=== PATIENT | female | born 2000 | race Caucasian/White ===

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

== ENCOUNTER 2022-05-01 10:48 | Emergency (ER) | payer OTHER, MEDICAID ==
[~2022-05-01] VITALS: Ht 167.7 cm; Wt 69.9 kg
[2022-05-01] MEDS ORDERED: hydrOXYzine (VISTARIL/ATARAX) 25 MG capsule/tablet PO ONE (11:45)
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
[2022-05-01] MEDS ORDERED: HYDR-3781 PO (13:22)
[2022-05-01 14:31] VITALS: BP 111/75
== END 2022-05-01 14:31 | disposition home or self-care (01) ==
LOC: EDUNIT# 10:48 → ER 10:50
DX: O99.342 Other mental disorders complicating pregnancy, second trimester (principal); F41.9 Anxiety disorder, unspecified; Z87.891 Personal history of nicotine dependence; Z3A.14 14 weeks gestation of pregnancy; Z28.311 Partially vaccinated for COVID-19
CPT/HCPCS: 99283

== ENCOUNTER → 2022-06-12 | Outpatient (CLI) | payer OTHER, MEDICAID ==
[~2022-06-12] MED LIST changes: +HYDR-3781 PO
--- NOTE | 2022-06-12 14:40 | Diagnostic Imaging Report ---
INDICATION: anatomy survey TECHNIQUE: Multiple real-time grayscale images were obtained over the gravid uterus. COMPARISON: None FINDINGS: Cervix is not well seen but measures approximately 4 cm in length. There is a single live intrauterine in the cephalic position. The placenta is posterior in location, and there is no evidence of previa or placental abruption. The amount of amniotic fluid appears visually appropriate. anatomy survey was performed and the following structures are visualized and normal: Four-chamber heart, stomach, urinary bladder, umbilical cord insertion, three-vessel cord, spine, right ventricular outflow tract, cerebral ventricles, cerebellum, cisterna magna, lips/nose, profile and left ventricular outflow tract. Dedicated imaging of the kidneys was not documented. Due to advanced gestational age, the maternal adnexa are suboptimally evaluated. Biometrical measurements are as follows: Biparietal 4.94 cm, age 21 weeks 0 days. Head circumference 18.05 cm, age 20 weeks 4 days. Abdominal circumference 15.95 cm, age 21 weeks 1 days. Femur length 3.21 cm, age 20 weeks 0 days. Sonographic estimate age: 20 weeks 5 days. Sonographic estimated date of delivery: 10/25/2022. Estimated Weight: 363 gm (+/- 54 gm). LMP percentile: 78%. heart rate: 150 beats per minute. number: 1 of 1. IMPRESSION: 1. Single live intrauterine has no anomaly of the visualized anatomy. 2. Kidneys are not seen on this exam. Consider followup ultrasound to document normal kidneys. Dictated by: Dictated on workstation # [id number]
== END ==
LOC: RAD 10:00
PROVIDERS: ATTEND Obstetrics & Gynecology
DX: Z34.92 Encounter for supervision of normal pregnancy, unspecified, second trimester (principal); Z3A.20 20 weeks gestation of pregnancy
CPT/HCPCS: 76805

== ENCOUNTER 2022-10-29 19:30 | Inpatient (IN) | payer OTHER, MEDICAID ==
[~2022-10-29] VITALS: Ht 165.1 cm; Wt 96.8 kg
[2022-10-29 20:55] VITALS: BP 133/81
[2022-10-29] MEDS ORDERED: AMPICILLIN FOR IV USE 2,000 MG in NS (IVPB) 50 ML IV SCH (21:12)
[2022-10-29] MEDS ORDERED: TERBUTALINE INJ 1 MG/ML (BRETHINE) AMP SC PRN (21:15)
[2022-10-29] MEDS ORDERED: NS IV 1000 ML 1,000 ML IV SCH (21:15)
[2022-10-29 21:50] LABS: BASOPHILS % (AUTO) 0 % (0-10); EOSINOPHILS % (AUTO) 0 % (0-10); HEMATOCRIT 30 % (35-52); HEMOGLOBIN 9.5 g/dL (11.5-16.0); LYMPHOCYTES # (AUTO) 2.3 10^3/uL (1.0-4.0); LYMPHOCYTES % (AUTO) 24 % (12-44); MEAN CORPUSCULAR HEMOGLOBIN 25 pg (25-34); MEAN CORPUSCULAR HGB CONC 32 g/dL (32-36); MEAN CORPUSCULAR VOLUME 78 fL (80-99); MEAN PLATELET VOLUME 11.5 fL (9.0-12.2); MONOCYTES % (AUTO) 11 % (0-12); NEUTROPHILS # (AUTO) 6.1 10^3/uL (1.8-7.8); NEUTROPHILS % (AUTO) 64 % (42-75); PLATELET COUNT 246 10^3/uL (130-400); WHITE BLOOD COUNT 9.5 10^3/uL (4.3-11.0)
[2022-10-29] MEDS: D5 LR IV SOLUTION 1,000 ML IV SCH (21:51)
[2022-10-29] MEDS: CATHETER FLUSH 10 ML SYR IV SCH (22:00)
[2022-10-29 22:04] LABS: BILIRUBIN,URINE NEGATIVE (NEGATIVE); CLARITY,URINE CLEAR; COLOR,URINE YELLOW; GLUCOSE, URINE (UA) NEGATIVE (NEGATIVE); KETONES,URINE TRACE (NEGATIVE); LEUKOCYTE ESTERASE ,URINE NEGATIVE (NEGATIVE); NITRITE,URINE NEGATIVE (NEGATIVE); PROTEIN,URINE TRACE (NEGATIVE)
[2022-10-29 22:13] LABS: BACTERIA,URINE NEGATIVE /HPF
[2022-10-30] VITALS (78 sets, daily range): BP systolic 90–165; BP diastolic 44–87
[2022-10-30] MEDS: AMPICILLIN FOR IV USE 1,000 MG in NS (IVPB) 50 ML IV SCH ×5 (01:56→18:19)
[2022-10-30] MEDS: D5 LR IV SOLUTION 1,000 ML IV SCH ×2 (06:07→15:22)
[2022-10-30] MEDS: CATHETER FLUSH 10 ML SYR IV SCH (06:07)
[2022-10-30] MEDS ORDERED: CALCIUM CARBONATE 500 MG (TUMS) TAB.CHEW ONE (06:20)
[2022-10-30] MEDS: CALCIUM CARBONATE 500 MG (TUMS) TAB.CHEW PO PRN (06:21)
[2022-10-30] MEDS ORDERED: OXYTOCIN PRE-MIX DRIP 500 ML IV SCH (08:00)
[2022-10-30] MEDS ORDERED: fentaNYL 2 mcg/ml BUPIVA 0.125 100 ML ONE (08:16)
[2022-10-30] MEDS ORDERED: fentaNYL INJ 100 MCG/2 ML AMP ONE (09:13)
[2022-10-30] MEDS ORDERED: diphenhydrAMINE 50 MG/ML INJ (BENADRYL) IV PRN (10:00)
[2022-10-30] MEDS ORDERED: NALOXONE 0.4 MG/ML 1 ML (NARCAN) VIAL IV PRN ×3 (10:00→19:45)
[2022-10-30] MEDS ORDERED: METOCLOPRAMIDE INJ 10 MG/2 ML (REGLAN) IV PRN (10:00)
[2022-10-30] MEDS ORDERED: ONDANSETRON 4 MG/2 ML (SDV) Z0FRAN IV PRN (10:00)
[2022-10-30] MEDS ORDERED: fentaNYL 2 mcg/ml BUPIVA 0.125 100 ML EPI SCH (10:00)
[2022-10-30] MEDS ORDERED: LACTATED RINGERS 1,000 ML IV ONE (10:00)
--- NOTE | 2022-10-30 12:05 | History & Physical-OB ---
OB - Chief Complaint & HPI Date/Time Date of Admission: Date of Admission: Oct 29, 2022 at 7:30 pm Date seen by a Provider: Oct 30, 2022 Time Seen by a Provider: 07:45 Chief Complaint/History OB-Reason for Admission/Chief: Induction of Labor Hx : 1 Hx Para: 0 Expected Date of Delivery: Oct 30, 2022 Gestational Age in Weeks: 39 Gestational Age in Days: 6 Admission Nurse Assessment Rev: Yes History of Labs A pos Antibody neg RI RPR NR HBsAg NR HIV NR GC neg GBS pos Allergies and Home Medications Allergies Coded Allergies: No Known Drug Allergies (Unverified , 04/08/16) Patient Home Medication List Home Medication List Reviewed: Yes No Active Prescriptions or Reported Meds OB - History Hx of Present Care: Yes Ultrasounds: Normal mid trimester US Obstetrical Complications: None Medical Complications: None Delivery History Hx Blood Disorders: No Patient Past Medical History n/a Immunizations Influenza Vaccine Up-to-Date: Yes; Up-to-Date First/Initial COVID19 Vaccine: July 2021 Second COVID19 Vaccination: None Third COVID19 Vaccination Date: None Hepatitis A: Yes Hepatitis B: Yes OB - Admission Exam Physical Exam Vitals: Vital Signs 10/30/22 10/30/22 07:50 10:50 Temp 36.6 Pulse 74 Resp 18 B/P (MAP) 127/79 (95) Pulse Ox 100 O2 Delivery Room Air HEENT: NCAT Heart: Rhythm Normal Lungs: Clear Abdomen: Gravid Extremities: Normal Reflexes: Normal Cervical Dilatation: 2cm Effacement: 75% Station: -1 Membranes: Intact Heart Rate: 130's Accelerations: Accelerations Present Decelerations: No Decelerations Short Term Variability: Present Fdc Variability: Average (6-25) Contractions on Admission: 6-10 Minutes Apart Intensity: Mild Labs Laboratory Tests Test 10/29/22 19:15 10/29/22 21:30 Range/Units Urine Color YELLOW Urine Clarity CLEAR Urine pH 6.0 5-9 Urine Specific [place] 1.025 H 1.016-1.022 Urine Protein TRACE H NEGATIVE Urine Glucose (UA) NEGATIVE NEGATIVE Urine Ketones TRACE H NEGATIVE Urine Nitrite NEGATIVE NEGATIVE Urine Bilirubin NEGATIVE NEGATIVE Urine Urobilinogen 0.2 < = 1.0 MG/DL Urine Leukocyte Esterase NEGATIVE NEGATIVE Urine RBC (Auto) NEGATIVE NEGATIVE Urine RBC NONE /HPF Urine WBC NONE /HPF Urine Squamous Epithelial Cells 2-5 /HPF Urine Crystals NONE /LPF Urine Bacteria NEGATIVE /HPF Urine Casts NONE /LPF Urine Mucus NEGATIVE /LPF Urine Culture Indicated NO White Blood Count 9.5 4.3-11.0 10^3/uL Red Blood Count 3.84 3.80-5.11 10^6/uL Hemoglobin 9.5 L 11.5-16.0 g/dL Hematocrit 30 L 35-52 % Mean Corpuscular Volume 78 L 80-99 fL Mean Corpuscular Hemoglobin 25 25-34 pg Mean Corpuscular Hemoglobin Concent 32 32-36 g/dL Red Cell Distribution Width 15.0 H 10.0-14.5 % Platelet Count 246 130-400 10^3/uL Mean Platelet Volume 11.5 9.0-12.2 fL Immature Granulocyte % (Auto) 1 % Neutrophils (%) (Auto) 64 42-75 % Lymphocytes (%) (Auto) 24 12-44 % Monocytes (%) (Auto) 11 0-12 % Eosinophils (%) (Auto) 0 0-10 % Basophils (%) (Auto) 0 0-10 % Neutrophils # (Auto) 6.1 1.8-7.8 10^3/uL Lymphocytes # (Auto) 2.3 1.0-4.0 10^3/uL Monocytes # (Auto) 1.0 0.0-1.0 10^3/uL Eosinophils # (Auto) 0.0 0.0-0.3 10^3/uL Basophils # (Auto) 0.0 0.0-0.1 10^3/uL Immature Granulocyte # (Auto) 0.1 0.0-0.1 10^3/uL OB - Assessment/Plan/Diagnosis Assessment Assessment: induction of labor Admission Dx 21 yo @ 40 weeks IOL GBS pos Admission Status: Inpatient Order (span 2 midnights) Reason for Inpatient Admission: IOL at 40 weeks Plan Plan: Induction Induction Method: per Misoprostol Protocol Other Plan Misoprostol given PO overnight, starting AROM and Pitocin this am. CHELI GOLDBERG DO Oct 30, 2022 12:05 pm
[2022-10-30] MEDS ORDERED: LIDOCAINE 1% INJ 20 ML VIAL ONE (18:51)
[2022-10-30] MEDS: OXYTOCIN PRE-MIX DRIP 500 ML IV SCH ×2 (19:35→20:05)
[2022-10-30] MEDS ORDERED: METHYLERGONOVINE 0.2 MG/ML (METHERGINE) AMP ONE (19:38)
[2022-10-30] MEDS ORDERED: BENZOCAINE/MENTHOL (DERMOPLAST) 56 ML CAN TP PRN (19:45)
[2022-10-30] MEDS ORDERED: DIBUCAINE 1% OINTMENT 28 GM TUBE TOP PRN (19:45)
[2022-10-30] MEDS ORDERED: TETANUS,DIPTH,PERTUSS P/F (BOOSTRIX) 0.5 ML VIAL IM ONE (19:45)
[2022-10-30] MEDS ORDERED: MEASLES,MUMPS,RUBELLA 1 EA INJ SQ ONE (19:45)
--- NOTE | 2022-10-30 19:52 | OB Labor & Delivery Record ---
L&D History Date of Service Date of Service: Oct 30, 2022 History Expected Date of Delivery: Oct 30, 2022 Gestational Age in Weeks: 39 Hx : 1 Hx Para: 0 Complications Events: Routine care Operative Indications (Cesarea: N/A-Vaginal Delivery Intrapartal Events: None L&D Stage1 Stage One Onset of Labor - Date: Oct 30, 2022 Monitors and Tracing Monitor Mode: External Heart Rate: 130 Monitor Accelerations: Uniform Monitor Decelerations: Variable Station: 0 Jail Variability: Average (6-10) Short Term Variability: Present Presentation: Vertex Vital Signs VS - Last 72 Hours, by Label 10/29/22 10/29/22 10/30/22 10/30/22 20:55 20:55 02:35 04:10 Temp 36.9 36.9 36.7 36.5 Pulse 98 92 81 68 Resp 18 18 18 18 B/P (MAP) 133/81 (98) 140/74 (96) 117/59 (78) Pulse Ox 97 97 O2 Delivery Room Air Room Air Room Air Room Air 10/30/22 10/30/22 10/30/22 10/30/22 07:50 08:05 08:20 08:35 Temp 36.6 Pulse 71 79 76 77 Resp 18 18 18 18 B/P (MAP) 126/86 (99) 128/68 (88) 130/83 (99) 123/80 (94) O2 Delivery Room Air Room Air Room Air Room Air 10/30/22 10/30/22 10/30/22 10/30/22 08:50 08:55 09:00 09:05 Pulse 77 86 90 88 Resp 18 18 18 18 B/P (MAP) 131/79 (96) 132/83 (99) 146/87 (106) 124/71 (88) Pulse Ox 98 99 99 100 O2 Delivery Room Air Room Air Room Air Room Air 10/30/22 10/30/22 10/30/22 10/30/22 09:23 09:27 09:35 09:40 Pulse 100 114 95 93 Resp 18 18 18 18 B/P (MAP) 126/73 (90) 117/64 (81) 111/62 (78) 111/62 (78) Pulse Ox 96 97 99 93 O2 Delivery Room Air Room Air Room Air Room Air 10/30/22 10/30/22 10/30/22 10/30/22 09:45 09:47 09:50 09:55 Pulse 97 90 92 98 Resp 18 18 18 18 B/P (MAP) 105/56 (72) 103/55 (71) 99/58 (72) 96/51 (66) Pulse Ox 99 99 97 98 O2 Delivery Room Air Room Air Room Air Room Air 10/30/22 10/30/22 10/30/22 10/30/22 10:00 10:05 10:20 10:35 Pulse 92 73 75 74 Resp 18 18 18 18 B/P (MAP) 106/57 (73) 127/58 (81) 121/77 (92) 126/58 (80) Pulse Ox 100 100 100 100 O2 Delivery Room Air Room Air Room Air Room Air 10/30/22 10/30/22 10/30/22 10/30/22 10:50 11:05 11:20 11:35 Pulse 74 71 71 71 Resp 18 18 18 18 B/P (MAP) 127/79 (95) 126/64 (84) 133/66 (88) 125/59 (81) Pulse Ox 100 100 100 100 O2 Delivery Room Air Room Air Room Air Room Air 10/30/22 10/30/22 10/30/22 10/30/22 11:50 12:05 12:35 12:45 Pulse 77 75 87 104 Resp 18 18 18 18 B/P (MAP) 134/62 (86) 142/77 (98) 134/85 (101) 152/64 (93) Pulse Ox 100 100 97 97 O2 Delivery Room Air Room Air Room Air Room Air 10/30/22 10/30/22 10/30/22 10/30/22 12:52 12:58 13:03 13:09 Temp 36.9 Pulse 97 80 93 90 Resp 18 18 18 18 B/P (MAP) 165/86 (112) 129/73 (91) 127/76 (93) 128/74 (92) Pulse Ox 97 97 99 99 O2 Delivery Room Air Room Air Room Air Room Air 10/30/22 10/30/22 10/30/22 10/30/22 13:14 13:20 13:25 13:27 Pulse 91 103 96 92 Resp 18 18 18 18 B/P (MAP) 121/75 (90) 121/68 (85) 131/67 (88) 128/70 (89) Pulse Ox 98 99 100 98 O2 Delivery Room Air Room Air Room Air Room Air 10/30/22 10/30/22 10/30/22 10/30/22 13:32 13:38 13:43 13:48 Pulse 93 103 123 122 Resp 18 18 18 18 B/P (MAP) 123/69 (87) 125/62 (83) 120/70 (87) 93/44 (60) Pulse Ox 97 96 99 95 O2 Delivery Room Air Room Air Room Air Room Air 10/30/22 10/30/22 10/30/22 10/30/22 14:02 14:13 14:22 14:33 Temp 37.2 Pulse 102 115 103 113 Resp 18 18 18 18 B/P (MAP) 116/69 (85) 123/70 (87) 112/69 (83) 98/50 (66) Pulse Ox 95 95 95 94 O2 Delivery Room Air Room Air Room Air Room Air 10/30/22 10/30/22 10/30/22 10/30/22 14:40 14:55 15:12 15:25 Pulse 83 69 65 66 Resp 18 18 18 18 B/P (MAP) 95/51 (66) 96/55 (69) 97/56 (70) 95/50 (65) Pulse Ox 100 100 100 100 O2 Delivery Room Air Room Air Room Air Room Air 10/30/22 10/30/22 10/30/22 10/30/22 15:45 16:00 16:12 16:28 Pulse 72 64 64 67 Resp 18 18 18 18 B/P (MAP) 142/52 (82) 91/52 (65) 90/55 (67) 95/52 (66) Pulse Ox 100 100 100 100 O2 Delivery Room Air Room Air Room Air Room Air 10/30/22 10/30/22 10/30/22 10/30/22 16:41 17:00 17:10 17:26 Temp 37.4 Pulse 73 78 79 83 Resp 18 18 18 18 B/P (MAP) 98/52 (67) 132/71 (91) 121/61 (81) 127/62 (83) Pulse Ox 100 100 100 100 O2 Delivery Room Air Room Air Room Air Room Air 10/30/22 10/30/22 10/30/22 10/30/22 17:42 17:55 18:20 18:45 Temp 38.0 Pulse 77 84 92 98 Resp 18 18 18 20 B/P (MAP) 121/71 (88) 120/69 (86) 134/64 (87) 140/54 (82) Pulse Ox 100 98 98 98 O2 Delivery Room Air Room Air Room Air Room Air 10/30/22 19:00 Pulse 131 Resp 20 B/P (MAP) 116/70 (85) Pulse Ox 100 O2 Delivery Room Air Rupture of Membranes Spontaneous Ruture of Membrane: No Amniotic Membrane Rupture Time: 744 Amniotic Membrane Fluid Desc.: Clear Vaginal Bleeding Description: Normal Show Induction/Anesthesia Epidural Cath Placement - Time: 900 Progress/Notes Patient admitted for IOL last night and given PO misoprostol per protocol overnight. This AM that was discontinued and AROM performed followed by low dose pitocin augmentation. She received an epidural and progressed to complete and + 1 station L&D Stage2 Stage Two Stage II Date: Oct 30, 2022 Monitors and Tracing Monitor Mode: External Heart Rate: 130 Monitor Decelerations: Prolonged Kitchen Clerk Variability: Average (6-10) Short Term Variability: Present Position: Right Occiput Anterior Signs of Distress by FHT Signs of Distress Due to deep decelerations after pushing to the 50s-60 decision was made once the vertex reached +2 station to proceed with low vacuum extraction. RML performed, and kiwi cup vacuum applied to the flexion point on scalp. Suction applied using hand piece at next maternal contraction and with controlled pushing suction applied to 450mmHg. With gentle extension of the head, it was delivered over RML episiotomy where a nuchal cord was reduced x 1. Anterior shoulder was delivered and remainder of delivered without difficulty. Cord Descript/Complications Cord Vessel Description: 3 Vessels Delivery Type Infant Delivery Method: Low Vacuum Extraction Anterior Shoulder: Left Episiotomy/Perineal Laceration Laceraction(s)/Extensions: Yes Episiotomy Description: Right Mediolateral Degree (describe repair) RML repaired in usual fashion using 3-0 rapide and 2-0 vicryl suture Condition of Infant Delivery 1 minute Comment: 8 5 minute Comment: 9 Notes Live male infant weight 8lbs 3 oz Condition of Condition of : Living Exam: No Observed Abnormalities Resuscitation Resuscitation: N/A - Spontaneous Resp L&D Stage3 Stage Three Stage III Date: Oct 30, 2022 Pictocin Pitocin Administration mu/min: 8 Pitocin ml/hr: 8 Pitocin Administration Comment: 30 mu wide open after delivery of placenta 0.2 mg methergine ordered IM due to slow persistent bleeding that rapidly resolved after administered. Placenta Delivery Placenta Delivery: Spontaneous Delivery Summary Summary Estimated blood loss (mL): 400 Attending at delivery: Cheli Godlberg DO Condition of Delivery Examined: Cervix Examined, Uterus Explored Post Hemorrhage: No Condition of Mother stable Condition of Infant (s) stable CHELI GOLDBERG DO Oct 30, 2022 19:52
[2022-10-30] MEDS ORDERED: METHYLERGONOVINE 0.2 MG/ML (METHERGINE) AMP IM ONE (20:45)
[2022-10-30] MEDS: WITCH HAZEL(TUCKS) 40 EA JAR TOP PRN (21:45)
[2022-10-30] MEDS: DOCUSATE SODIUM 100 MG (COLACE) CAP PO SCH (21:45)
[2022-10-30] MEDS: IBUPROFEN 600 MG (MOTRIN) TAB PO SCH (21:45)
[2022-10-30] MEDS ORDERED: CATHETER FLUSH 10 ML SYR IV SCH (22:00)
[2022-10-31 00:10] VITALS: BP 127/64
[2022-10-31] MEDS: HYDROcodone/APAP 5 MG/325 MG (LORTAB) TAB PO PRN ×2 (00:22→13:40)
[2022-10-31 04:02] VITALS: BP 116/55
[2022-10-31] MEDS: IBUPROFEN 600 MG (MOTRIN) TAB PO SCH ×4 (04:03→21:56)
[2022-10-31 06:12] LABS: BASOPHILS % (AUTO) 0 % (0-10); EOSINOPHILS % (AUTO) 0 % (0-10); HEMATOCRIT 25 % (35-52); HEMOGLOBIN 7.7 g/dL (11.5-16.0); LYMPHOCYTES # (AUTO) 1.5 10^3/uL (1.0-4.0); LYMPHOCYTES % (AUTO) 14 % (12-44); MEAN CORPUSCULAR HEMOGLOBIN 25 pg (25-34); MEAN CORPUSCULAR HGB CONC 31 g/dL (32-36); MEAN CORPUSCULAR VOLUME 79 fL (80-99); MEAN PLATELET VOLUME 11.9 fL (9.0-12.2); MONOCYTES # (AUTO) 0.9 10^3/uL (0.0-1.0); MONOCYTES % (AUTO) 9 % (0-12); NEUTROPHILS % (AUTO) 76 % (42-75); PLATELET COUNT 181 10^3/uL (130-400); WHITE BLOOD COUNT 10.5 10^3/uL (4.3-11.0)
[2022-10-31 08:15] VITALS: BP 117/71
[2022-10-31] MEDS: FERROUS SULF 325 MG (IRON) TAB PO SCH (08:15)
[2022-10-31] MEDS: DOCUSATE SODIUM 100 MG (COLACE) CAP PO SCH ×2 (08:15→21:56)
[2022-10-31] MEDS: PRENATAL VITAMIN 1 EA TAB PO SCH (08:15)
--- NOTE | 2022-10-31 09:39 | Postpartum Progress Note ---
Note Note Day # 1 Subjective: Patient is without complaints. Ambulating, voiding. Tolerating a regular diet without nausea or vomiting. Normal lochia. Pain is well controlled with oral pain medications. Denies dizziness, SOA. Physical Exam: General - Alert and oriented, no apparent distress Abdomen - Soft, appropriately tender to palpation, non-distended, fundus firm at umbilicus Extremities - no edema, negative Efraín's bilaterally Assessment: Post- day # 1, status post vaginal delivery. Recovering well, hemodynamically stable. Acute blood loss anemia Plan: Routine care. Encourage breast feeding. Encourage ambulation. Ferrous sulfate supplementation. Plan for discharge tomorrow Vitals - Labs Vital Signs - I&O Vital Signs Date Time Temp Pulse Resp B/P (MAP) Pulse Ox O2 Delivery O2 Flow Rate FiO2 10/31/22 08:15 36.6 97 18 117/71 (86) 97 Room Air 10/31/22 04:02 37.0 94 18 116/55 (75) 98 Room Air 10/31/22 00:10 37.6 98 18 127/64 (85) 97 Room Air 10/30/22 22:40 109 20 137/64 (88) Room Air 10/30/22 22:25 116 20 140/63 (88) Room Air 10/30/22 22:10 116 20 127/57 (80) Room Air 10/30/22 21:55 100 20 130/63 (85) Room Air 10/30/22 21:41 107 20 142/76 (98) Room Air 10/30/22 21:25 94 20 118/60 (79) Room Air 10/30/22 21:10 92 20 119/69 (86) Room Air 10/30/22 20:55 87 20 123/60 (81) Room Air 10/30/22 20:40 100 20 121/64 (83) Room Air 10/30/22 20:25 93 20 105/64 (78) Room Air 10/30/22 20:10 95 20 127/73 (91) Room Air 10/30/22 19:55 100 20 123/67 (85) Room Air 10/30/22 19:40 38.3 115 20 96/52 (67) Room Air 10/30/22 19:37 38.0 108 20 138/58 (84) Room Air 10/30/22 19:10 122 20 110/56 (74) Room Air 10/30/22 19:00 131 20 116/70 (85) 100 Room Air 10/30/22 18:45 98 20 140/54 (82) 98 Room Air 10/30/22 18:20 38.0 92 18 134/64 (87) 98 Room Air 10/30/22 17:55 84 18 120/69 (86) 98 Room Air 10/30/22 17:42 77 18 121/71 (88) 100 Room Air 10/30/22 17:26 83 18 127/62 (83) 100 Room Air 10/30/22 17:10 79 18 121/61 (81) 100 Room Air 10/30/22 17:00 78 18 132/71 (91) 100 Room Air 10/30/22 16:41 37.4 73 18 98/52 (67) 100 Room Air 10/30/22 16:28 67 18 95/52 (66) 100 Room Air 10/30/22 16:12 64 18 90/55 (67) 100 Room Air 10/30/22 16:00 64 18 91/52 (65) 100 Room Air 10/30/22 15:45 72 18 142/52 (82) 100 Room Air 10/30/22 15:25 66 18 95/50 (65) 100 Room Air 10/30/22 15:12 65 18 97/56 (70) 100 Room Air 10/30/22 14:55 69 18 96/55 (69) 100 Room Air 10/30/22 14:40 83 18 95/51 (66) 100 Room Air 10/30/22 14:33 113 18 98/50 (66) 94 Room Air 10/30/22 14:22 103 18 112/69 (83) 95 Room Air 10/30/22 14:13 115 18 123/70 (87) 95 Room Air 10/30/22 14:02 37.2 102 18 116/69 (85) 95 Room Air 10/30/22 13:48 122 18 93/44 (60) 95 Room Air 10/30/22 13:43 123 18 120/70 (87) 99 Room Air 10/30/22 13:38 103 18 125/62 (83) 96 Room Air 10/30/22 13:32 93 18 123/69 (87) 97 Room Air 10/30/22 13:27 92 18 128/70 (89) 98 Room Air 10/30/22 13:25 96 18 131/67 (88) 100 Room Air 10/30/22 13:20 103 18 121/68 (85) 99 Room Air 10/30/22 13:14 91 18 121/75 (90) 98 Room Air 10/30/22 13:09 90 18 128/74 (92) 99 Room Air 10/30/22 13:03 36.9 93 18 127/76 (93) 99 Room Air 10/30/22 12:58 80 18 129/73 (91) 97 Room Air 10/30/22 12:52 97 18 165/86 (112) 97 Room Air 10/30/22 12:45 104 18 152/64 (93) 97 Room Air 10/30/22 12:35 87 18 134/85 (101) 97 Room Air 10/30/22 12:05 75 18 142/77 (98) 100 Room Air 10/30/22 11:50 77 18 134/62 (86) 100 Room Air 10/30/22 11:35 71 18 125/59 (81) 100 Room Air 10/30/22 11:20 71 18 133/66 (88) 100 Room Air 10/30/22 11:05 71 18 126/64 (84) 100 Room Air 10/30/22 10:50 74 18 127/79 (95) 100 Room Air 10/30/22 10:35 74 18 126/58 (80) 100 Room Air 10/30/22 10:20 75 18 121/77 (92) 100 Room Air 10/30/22 10:05 73 18 127/58 (81) 100 Room Air 10/30/22 10:00 92 18 106/57 (73) 100 Room Air 10/30/22 09:55 98 18 96/51 (66) 98 Room Air 10/30/22 09:50 92 18 99/58 (72) 97 Room Air 10/30/22 09:47 90 18 103/55 (71) 99 Room Air 10/30/22 09:45 97 18 105/56 (72) 99 Room Air 10/30/22 09:40 93 18 111/62 (78) 93 Room Air I & O 10/31/22 07:00 Intake Total 3150 ml Balance 3150 ml Labs Laboratory Tests 10/31/22 05:18: White Blood Count 10.5, Red Blood Count 3.11L, Hemoglobin 7.7L, Hematocrit 25L, Mean Corpuscular Volume 79L, Mean Corpuscular Hemoglobin 25, Mean Corpuscular Hemoglobin Concent 31L, Red Cell Distribution Width 15.0H, Platelet Count 181, Mean Platelet Volume 11.9, Immature Granulocyte % (Auto) 1, Neutrophils (%) (Auto) 76H, Lymphocytes (%) (Auto) 14, Monocytes (%) (Auto) 9, Eosinophils (%) (Auto) 0, Basophils (%) (Auto) 0, Neutrophils # (Auto) 8.0H, Lymphocytes # (Auto) 1.5, Monocytes # (Auto) 0.9, Eosinophils # (Auto) 0.0, Basophils # (Auto) 0.0, Immature Granulocyte # (Auto) 0.1 EROS LEBLANC APRN Oct 31, 2022 09:39
--- NOTE | 2022-10-31 11:06 | Anesthesia-Regional Post-Op ---
Regional Patient Condition Mental Status: Alert, Oriented x3 Circulation: Same as Pre-Op Headache: Absent Sensation: Full Recovery Motor Block: Absent Post Op Complications Complications None Follow Up Care/Instructions Patient Instructions None needed. Anesthesia/Patient Condition Patient is doing well, no complaints, stable vital signs, no apparent adverse anesthesia problems. No complications reported per nursing. LUAN MATIAS CRNA Oct 31, 2022 11:06
[2022-10-31] MEDS: WITCH HAZEL(TUCKS) 40 EA JAR TOP PRN (13:40)
[2022-10-31 14:30] VITALS: BP 115/65
[2022-10-31 21:55] VITALS: BP 128/75
[2022-11-01] MEDS: IBUPROFEN 600 MG (MOTRIN) TAB PO SCH ×2 (04:16→10:49)
[2022-11-01] MEDS: HYDROcodone/APAP 5 MG/325 MG (LORTAB) TAB PO PRN (04:16)
[2022-11-01 04:18] VITALS: BP 123/65
[2022-11-01 08:30] VITALS: BP 127/64
[2022-11-01] MEDS: DOCUSATE SODIUM 100 MG (COLACE) CAP PO SCH (08:40)
[2022-11-01] MEDS: FERROUS SULF 325 MG (IRON) TAB PO SCH (08:40)
[2022-11-01] MEDS: PRENATAL VITAMIN 1 EA TAB PO SCH (08:41)
--- NOTE | 2022-11-01 10:06 | Postpartum Progress Note ---
Note Note Day # 2 Subjective: Patient is without complaints. Ambulating, voiding. Tolerating a regular diet without nausea or vomiting. Normal lochia. Pain is well controlled with oral pain medications. Physical Exam: General - Alert and oriented, no apparent distress Abdomen - Soft, appropriately tender to palpation, non-distended, fundus firm at umbilicus Extremities - no edema, negative Efraín's bilaterally Assessment: Post- day # 2, status post vaginal delivery. Recovering well, hemodynamically stable Acute blood loss anemia Plan: Routine care. Encourage breast feeding. Encourage ambulation. Ferrous sulfate supplementation. Plan for discharge today Vitals - Labs Vital Signs - I&O Vital Signs Date Time Temp Pulse Resp B/P (MAP) Pulse Ox O2 Delivery O2 Flow Rate FiO2 11/01/22 08:30 36.7 88 18 127/64 (85) 98 Room Air 11/01/22 04:18 36.6 97 18 123/65 (84) 99 Room Air 10/31/22 21:55 36.3 95 18 128/75 (92) 100 10/31/22 14:30 36.5 90 18 115/65 (82) 99 Room Air EROS LEBLANC APRN Nov 01, 2022 10:06
[2022-11-01] MEDS ORDERED: DIBU30OI TOP (10:09)
[2022-11-01] MEDS ORDERED: DOCU100C37 PO (10:09)
[2022-11-01] MEDS ORDERED: WTCHGPD TOP (10:09)
[2022-11-01] MEDS ORDERED: BENZ78AE5 TP (10:09)
[2022-11-01] MEDS ORDERED: ACHD5005 PO (10:09)
[2022-11-01] MEDS ORDERED: IBUP-844 PO (10:09)
[2022-11-01] MEDS ORDERED: FERR325T24 PO (10:09)
--- NOTE | 2022-11-01 10:10 | Discharge Inst-Women's Service ---
Discharge Inst-Women's Serv Depart Medication/Instructions New, Converted or Re-Newed RX: Transmitted to Pharmacy Consults/Follow Up Additional Follow Up: Yes (6wk appt) Activity Activity: Activity as Tolerated Driving Instructions: No Driving for 1 Week NO SMOKING: NO SMOKING Nothing Inside Vagina: No Douching, No [place], No Tampons Diet Discharge Diet: No Restrictions Symptoms to Report to : Pain Increased, Fever Over 101 Degrees F, Vaginal Bleeding Increase, Vaginal Discharge Foul For Any Problems or Questions: Contact Your Physician EROS LEBLANC APRN Nov 01, 2022 10:10
[2022-11-01] MEDS: CALCIUM CARBONATE 500 MG (TUMS) TAB.CHEW PO PRN (10:48)
[2022-11-01 15:30] VITALS: BP 140/74
[2022-11-01 15:40] VITALS: BP 140/74
== END 2022-11-01 15:40 | disposition home or self-care (01) | DRG 806 ==
LOC: LDRP 19:30
PROVIDERS: ADMIT Obstetrics & Gynecology; ATTEND Obstetrics & Gynecology
PROC: 10D07Z6 Extraction of Products of Conception, Vacuum, Via Natural or Artificial Opening (ICD-10-PCS; principal; 2022-10-29)
PROC: 10907ZC Drainage of Amniotic Fluid, Therapeutic from Products of Conception, Via Natural or Artificial Opening (ICD-10-PCS; 2022-10-29)
PROC: 0W8NXZZ Division of Female Perineum, External Approach (ICD-10-PCS; 2022-10-29)
PROC: 3E033VJ Introduction of Other Hormone into Peripheral Vein, Percutaneous Approach (ICD-10-PCS; 2022-10-29)
DX: O99.824 Streptococcus B carrier state complicating childbirth (principal); D62 Acute posthemorrhagic anemia; Z37.0 Single live birth; Z3A.39 39 weeks gestation of pregnancy; O90.81 Anemia of the puerperium; O69.81X0 Labor and delivery complicated by cord around neck, without compression, not applicable or unspecified
CPT/HCPCS: 36415; 81000; 85025; 86780; 86850; 86900; 86901

== ENCOUNTER → 2023-07-01 | Outpatient (CLI) | payer OTHER, MEDICAID ==
[~2023-07-01] MED LIST changes: +ACHD5005 PO; +BENZ78AE5 TP; +DIBU30OI TOP; +DOCU100C37 PO; +FERR325T24 PO; +IBUP-844 PO; +WTCHGPD TOP
--- NOTE | 2023-07-01 18:21 | Diagnostic Imaging Report ---
INDICATION: survey. TECHNIQUE: Multiple real-time grayscale images were obtained over the gravid uterus. COMPARISON: None. FINDINGS: There is a single live fetus in a cephalic presentation. heart rate was recorded at 149 BPM. Placenta is anterior. No previa is detected. The amniotic fluid volume is 12.5 cm. Cervical length is 4 cm. kidneys are unremarkable apart from the renal pelvis being slightly prominent at approximately 3 to 4 mm. bladder and stomach are unremarkable. brain is unremarkable. There is a four-chamber heart. There is a three-vessel cord with normal insertion. spine is unremarkable. Maternal adnexa was not evaluated. Biometrical measurements are as follows: Biparietal 4.78 cm, age 20 weeks 4 days. Head circumference 17.79 cm, age 20 weeks 2 days. Abdominal circumference 14.47 cm, age 19 weeks 6 days. Femur length 3.60 cm, age 21 weeks 3 days. Sonographic estimate age: 20 weeks 4 days. Sonographic estimated date of delivery: 11/14/2023. Estimated Weight: 359 gm (+/- 53 gm). LMP percentile: 50%. heart rate: 149 beats per minute. number: 1 of 1. IMPRESSION: Single live IUP of 20 weeks 4 days gestational age with estimated date of confinement sonographically of 11/14/2023. Dictated by: Dictated on workstation # [id number]
== END ==
LOC: RAD 12:00
PROVIDERS: ATTEND Nurse Practitioner Women's Health
DX: Z34.02 Encounter for supervision of normal first pregnancy, second trimester (principal); Z3A.20 20 weeks gestation of pregnancy
CPT/HCPCS: 76805